=== PATIENT | female | born 1985 | race Caucasian/White ===

== ENCOUNTER 2017-01-01 21:24 | Emergency (ER) | payer OTHER ==
[2017-01-02 00:01] VITALS: BP 125/77
== END 2017-01-02 00:01 | disposition home or self-care (01) ==
LOC: ED 21:24
DX: S05.01XA Injury of conjunctiva and corneal abrasion without foreign body, right eye, initial encounter (principal); Y33.XXXA Other specified events, undetermined intent, initial encounter; Y93.89 Activity, other specified; Y92.89 Other specified places as the place of occurrence of the external cause; Y99.8 Other external cause status
CPT/HCPCS: J1885; Q0162